=== PATIENT | female | born 1935 | race Caucasian/White ===

== ENCOUNTER 2016-03-29 10:06 | Day surgery (SDC) | payer MEDICARE, OTHER ==
[~2016-03-29] VITALS: Ht 134.6 cm; Wt 45.3 kg
[~2016-03-29 10:06] MED LIST: RANI300T; SERT25TA PO; TRAM50TA2 PO
[2016-03-29 10:48] VITALS: Ht 134.6 cm; Wt 45.3 kg
[2016-03-29] MEDS ORDERED: RA COL-RITE PO (10:48)
[2016-03-29] MEDS ORDERED: RANI150T5 PO (10:48)
[2016-03-29] MEDS ORDERED: CITA10SO5 GTB (10:48)
[2016-03-29] MEDS ORDERED: GABA100C14 PO (10:48)
[2016-03-29] MEDS ORDERED: OMEP40CA6 PO (10:48)
[2016-03-29] MEDS ORDERED: ACYC400T2 PO (10:48)
[2016-03-29 11:22] VITALS: BP 171/81; PULSE 71; RESP 16
[2016-03-29 12:10] VITALS: BP 141/67; PULSE 53; RESP 19
--- NOTE | 2016-03-29 13:10 | GILP ---
DATE OF PROCEDURE: NAME OF PROCEDURES: 1. Esophagogastroduodenoscopy and biopsy. 2. Colonoscopy. SURGEON: Diana Chinchilla MD PREOPERATIVE DIAGNOSES: 1. Abdominal pain. 2. Change in the bowel habit. 3. Rectal bleeding. POSTOPERATIVE DIAGNOSES: 1. Gastritis with erosions. 2. Gastric mucosal biopsies were taken for H. pylori test. 3. Colonoscopy all the way to the cecum. 4. Internal and external hemorrhoids. 5. No colon neoplasm was identified. INDICATION FOR THE PROCEDURE: Ms. Kamala Gutiérrez is an 81-year-old female patient who had upper a bdominal pain, not responding to therapy. Patient also had change in the bowel habit and rectal ble eding. She never had a screening colonoscopy, so the patient was scheduled for endoscopy and colono scopy for further evaluation. The procedures and possible complications are well explained to the patient, and her daughter. They understood and consented to the procedure. DESCRIPTION OF PROCEDURE: Under the influence of anesthesia, the gastroscope was carefully introduc ed into the esophagus and under direct vision, it was advanced to the stomach and through the pyloru s into the duodenal bulb and descending duodenum. FINDINGS: ESOPHAGUS: The mucosa was normal. STOMACH: The patient had gastritis. Gastric mucosal biopsies were taken for H. pylori test. DUODENUM: Normal. The colonoscope was carefully introduced in the rectum and under direct vision, it was advanced all the way to the cecum. FINDINGS: The patient had internal and external hemorrhoids. No colon neoplasm was identified. She tolerated the procedures very well and there was no complication from the procedures. At the en d of the procedures, she was awake with stable vital signs and she was discharged home to the care o f her family. IMPRESSION: 1. Gastritis. 2. Gastric mucosal biopsies were taken for Helicobacter pylori test. 3. Colonoscopy all the way to the cecum. 4. Internal and external hemorrhoids. 5. No colon neoplasm was identified. PLAN: 1. Continue omeprazole, Zantac and Colace. 2. Await H. pylori test report. 3. The patient will not need another screening colonoscopy. Dictated By: DIANA CHINCHILLA MD GD/NTS Conf#: [id number] DID#: [id number] CC: DIANA CHINCHILLA MD;*EndCC*
--- NOTE | 2016-03-29 20:52 | RADRPT ---
Vent Rate: 61 bpm RR Interval: 0 msec WV Interval: 196 msec QRS Duration: 86 msec QT Interval: 420 msec QTC Interval: 422 msec P-R-T Moran: 59 - -47 - 74 degrees Normal sinus rhythm Left anterior fascicular block Nonspecific T wave abnormality Abnormal ECG Electronically Signed By: Lang Bonilla [id number]
--- NOTE | 2016-03-29 22:26 | CONS ---
DATE OF ADMISSION: 03/29/2016 DATE OF CONSULTATION: 03/21/2016 TYPE OF CONSULTATION: Preoperative gastroenterology. Preoperative gastroenterology consultation Dear Dr. Plummer: I thank you very much for this kind referral. HISTORY OF PRESENT ILLNESS: Ms. Kamala Gutiérrez is an 81-year-old female patient who has been refe rred to me for further evaluation of change in the bowel habit with constipation. She also has left lower quadrant abdominal pain. She gives history of rectal bleeding. Patient has been taking Cola ce. There is no past history of colon neoplasm. The patient never had screening colonoscopy. Her appetite has been okay and there is no history of significant weight loss. Patient also complains o f upper abdominal pain and chronic heartburn, not responding to therapy with omeprazole and Zantac. She is not taking any nonsteroidal anti-inflammatory agents. She is status post cholecystectomy. She does not have any fever, chills or jaundice. There is no history of liver disease. The patient has history of arthritis and she is status post back surgery. SOCIAL HISTORY: She is a nonsmoker. She does not abuse alcohol. FAMILY HISTORY: Negative for gastrointestinal tract neoplasm. ALLERGIES: STATES SHE IS ALLERGIC TO SULFA AND LEVAQUIN. MEDICATIONS: Omeprazole, Zantac, Colace, gabapentin, tramadol and acyclovir . PHYSICAL EXAMINATION: VITAL SIGNS: She is 4 feet 10 inches tall and she weighs 100 pounds. BMI 21, blood pressure 114/57 . HEART: Examination of the heart reveals normal first and second heart sounds. LUNGS: Clear. ABDOMEN: Soft without any distention. Liver and spleen are not palpable. There are no masses. Th ere is no focal tenderness. Normal bowel sounds are heard. RECTAL: Examination deferred per the patient's request. CENTRAL NERVOUS SYSTEM: Does not reveal any focal neurological deficit. IMPRESSION: 1. Change in the bowel habit with constipation. 2. Rectal bleeding. 3. Left lower quadrant abdominal pain. 4. The patient never had screening colonoscopy. 5. Upper abdominal pain and chronic heartburn, not responding to therapy with omeprazole and Zantac . 6. Arthritis. 7. Status post back surgery. 8. History of herpes infection and she is on acyclovir. 9. Status post cholecystectomy. 10. HISTORY OF ALLERGY TO SULFA, LEVAQUIN. PLAN: Endoscopy and colonoscopy for further evaluation. The procedures and possible complications are well explained to the patient and the family. They un derstand and consent to the procedures. I thank you once again. With warmest personal regards, DIANA CHINCHILLA MD Dictated By: DIANA ARAMBULA/KRYSTA Conf#: [id number] DID#: [id number]
== END 2016-03-29 13:15 | disposition home or self-care (01) ==
LOC: GIL 10:06
PROVIDERS: ATTEND Internal Medicine Gastroenterology
DX: R19.4 Change in bowel habit (principal); K64.8 Other hemorrhoids; K64.4 Residual hemorrhoidal skin tags; K29.60 Other gastritis without bleeding
CPT/HCPCS: 87081; 93005